=== PATIENT | male | born 1965 | race Two or more races ===

== ENCOUNTER → 2022-04-03 | Outpatient (CLI) | payer BC ==
[2022-04-03 08:04] LABS: African American GFR (CKD) >90 (>60 ml/min/1.73 sqM); Blood Urea Nitrogen 16 mg/dL (9-20); Non-African American GFR(CKD) >90 (>60 ml/min/1.73 sqM)
--- NOTE | 2022-04-03 10:33 | CT ---
EXAMINATION TYPE: CT abdomen wo/w con DATE OF EXAM: 04/03/2022 COMPARISON: NONE HISTORY: 56-year-old male N28.1, renal cyst TECHNIQUE: Contiguous axial scanning of the abdomen before and after administration of 70 ml Isovue 3 00 IV contrast. Delayed images through the kidneys and coronal/sagittal reconstructions performed. CT DLP: 1863 mGycm Automated exposure control for dose reduction was used. FINDINGS: Heart normal size without pericardial effusion. Lung bases clear without pleural effusion. No focal liver lesion or biliary ductal dilatation. Portal venous system is patent. Cholecystectomy c lips. Adrenal glands, spleen, and pancreas within normal limits. No renal calculi. Left kidney shows 3 cortical hypodensities measuring 1.3, 1.4, and 0.8 cm. These are too small for ac curate CT characterization and probably represent benign cortical cysts. Consider 12 month follow-up to reassess. On the right, there is a large lobulated cystic mass measuring 8.4 cm AP by 6.7 cm wide by 6.3 cm acid crane operator niocaudal. No enhancing soft tissue components, thickened septations, or calcifications are seen. A benign 1.8 cm cortical cyst medial midpole left kidney. No dilated small bowel, free fluid, or free air. No mesenteric or retroperitoneal lymphadenopathy. Mild stool burden. No pericolonic inflammatory change. Pelvis not imaged. Bones: Mild degenerative disc disease throughout. Facet arthropathy mid to lower lumbar spine. IMPRESSION: 1. A BOSNIAK CATEGORY 2F RIGHT RENAL CYST MEASURING 8.4 CM. PROMINENT LOBULATIONS MAY REFLECT MULTIPL E THIN INTERNAL SEPTATIONS. RECOMMEND CT OR MRI AT 6 AND 12 MONTHS FOLLOWED BY [facility] FO R 5 YEARS. 2. OTHER SMALLER CORTICAL RENAL LESIONS CAN ALSO BE REASSESSED AT THE FOLLOW-UP EXAMS. MANY OF THESE ARE TOO SMALL FOR ACCURATE CHARACTERIZATION AND PROBABLY REPRESENT ADDITIONAL CYSTS.
== END | disposition home or self-care (01) ==
LOC: RADCTMAIN 07:24
PROVIDERS: ATTEND Family Medicine
DX: N28.1 Cyst of kidney, acquired (principal)
CPT/HCPCS: 82565; 84520; 74170; 36415; Q9967

== ENCOUNTER → 2022-10-11 | Outpatient (CLI) | payer BC ==
[2022-10-11 18:28] LABS: African American GFR (CKD) >90 (>60 ml/min/1.73 sqM); Blood Urea Nitrogen 21 mg/dL (9-20); Non-African American GFR(CKD) 90 (>60 ml/min/1.73 sqM)
--- NOTE | 2022-10-11 23:46 | CT ---
EXAMINATION TYPE: CT abdomen wo/w con DATE OF EXAM: 10/11/2022 COMPARISON: 04/03/2022 INDICATION: Renal cyst DLP: 3246.2 mGycm, Automated exposure control for dose reduction was used. CONTRAST: 100 cc mL of Isovue 300. Study performed with Oral Contrast TECHNIQUE: Axial images were obtained from above the diaphragm to the pubic rami in the axial plane a t 5 mm thick sections. Reconstructed images are reviewed on the computer in the coronal plane. FINDINGS: Limited CT sections are obtained the lung bases. The lung bases are clear. CT ABDOMEN: Liver: Normal Spleen: Normal Pancreas: Normal Adrenal glands: The adrenal glands are normal. Gallbladder: Surgically absent Kidneys: No masses are evident. No hydronephrosis is present. There is a 7.0 cm cyst in the anterio r mid left kidney Delayed images were obtained through the kidneys. Small cortical renal cysts are m ore apparent on the delayed images. Aorta: Vascular calcification is within the aorta. Inferior vena cava: Normal. CT PELVIS: Loops of bowel within the abdomen and pelvis are normal. There are loops of bowel which are incom pletely distended or lack oral contrast limiting their evaluation. Appendix: Normal as visualized. Urinary bladder: Normal. Genitourinary structures: Prostate appears normal Osseous structures: No suspicious lytic or sclerotic lesions. Subchondral cyst formation may be withi n the femoral heads. IMPRESSIONS: 1. 7 cm simple appearing cyst measuring 7 Hounsfield units mid right kidney. Additional smaller alfred ical renal cysts. Be present bilaterally
== END | disposition home or self-care (01) ==
LOC: RADCTMAIN 17:31
PROVIDERS: ATTEND Urology
DX: N28.1 Cyst of kidney, acquired (principal)
CPT/HCPCS: 82565; 84520; 74170; 36415; Q9967

== ENCOUNTER 2023-10-30 10:36 | Emergency (ER) | payer BC ==
[2023-10-30 10:46] VITALS: RESP 18
--- NOTE | 2023-10-30 10:53 | ED ---
Skin/Abscess/FB HPI - General Chief complaint: Skin/Abscess/Foreign Body Stated complaint: rash on leg/pain Time Seen by Provider: 10/30/23 10:52 Source: patient, RN notes reviewed Mode of arrival: ambulatory Limitations: no limitations - History of Present Illness Initial comments: This is a 58-year-old male with no significant past medical history emergency department chief complaint of a rash to his right lower extremity. He states that he woke up the middle of the night on 10/27/23 with chills and nausea and on 10/28/23 noticed an erythematous and pruritic rash of the right lower extremity that is painful. He states he was working outside most the day on Sunday and believes he may have been exposed to an allergen or bug bite. Patient went to his primary care provider yesterday and was treated with a prednisone taper pack. Currently patient denies any shortness of breath, chest pain or pressure, palpitations. Endorses pain in the right lower extremity. - Related Data Previous Rx's Medication Instructions Recorded Cephalexin [Keflex] 500 mg PO Q6HR #40 cap 10/30/23 Ondansetron Odt [Zofran Odt] 4 mg PO Q8HR PRN #10 tab 10/30/23 Allergies Allergy/AdvReac Type Severity Reaction Status Date / Time iodine Allergy Anaphylaxis Verified 03/23/17 08:26 shellfish derived Allergy Anaphylaxis Verified 10/30/23 10:46 Review of Systems ROS Statement: Those systems with pertinent positive or pertinent negative responses have been documented in the HPI. ROS Other: All systems not noted in ROS Statement are negative. Past Medical History Past Medical History: No Reported History History of Any Multi-Drug Resistant Organisms: None Reported Past Surgical History: Cholecystectomy Additional Past Surgical History / Comment(s): VASECTOMY Past Anesthesia/Blood Transfusion Reactions: No Reported Reaction Past Psychological History: No Psychological Hx Reported Smoking Status: Former smoker Past Alcohol Use History: Occasional Past Drug Use History: None Reported - Past Family History Father Family Medical History: Cancer General Exam Limitations: no limitations General appearance: alert, in no apparent distress Head exam: Present: atraumatic, normocephalic, normal inspection Eye exam: Present: normal appearance, PERRL, EOMI. Absent: scleral icterus, conjunctival injection, periorbital swelling ENT exam: Present: normal exam, mucous membranes moist Neck exam: Present: normal inspection. Absent: tenderness, meningismus, lymphadenopathy Respiratory exam: Present: normal lung sounds bilaterally. Absent: respiratory distress, wheezes, rales, rhonchi, stridor Cardiovascular Exam: Present: regular rate, normal rhythm, normal heart sounds. Absent: systolic murmur, diastolic murmur, rubs, gallop, clicks GI/Abdominal exam: Present: soft, normal bowel sounds. Absent: distended, tenderness, guarding, rebound, rigid Extremities exam: Present: tenderness (superior left inguinal thigh, no palpated LN enlargement or signs of erythema/edema) Right Lower Leg exam: Present: tenderness, erythema Back exam: Present: normal inspection Neurological exam: Present: alert, oriented X3, CN II-XII intact Skin exam: Present: warm, rash, erythema (RLE erythema and patchy painful rash that is warm to the touch) Course Vital Signs 10/30/23 10/30/23 10:40 12:20 Temperature 98.8 F 99 F Pulse Rate 85 84 Respiratory 18 18 Rate Blood Pressure 153/72 155/84 O2 Sat by Pulse 97 98 Oximetry Medical Decision Making - Medical Decision Making Was pt. sent in by a medical professional or institution (, PA, SLIPCOVER CUTTER, urgent care, hospital, or half-way...) When possible be specific @ -No Did you speak to anyone other than the patient for history (EMS, parent, family, police, friend...)? What history was obtained from this source @ -No Did you review nursing and triage notes (agree or disagree)? Why? @ -I reviewed and agree with nursing and triage notes Were old charts reviewed (outside hosp., previous admission, EMS record, old EKG, old radiological studies, urgent care reports/EKG's, half-way records)? Report findings @ -No old charts were reviewed Differential Diagnosis (chest pain, altered mental status, abdominal pain women, abdominal pain men, vaginal bleeding, weakness, fever, dyspnea, syncope, headache, dizziness, GI bleed, back pain, seizure, CVA, palpatations, mental health, musculoskeletal)? @ -Cellulitis, rash, dermatitis, contact dermatitis, DVT, superficial thrombop hlebitis this list is not all inclusive. EKG interpreted by me (3pts min.). @ -None X-rays interpreted by me (1pt min.). @ -None done CT interpreted by me (1pt min.). @ -None done U/S interpreted by me (1pt. min.). @ -Duplex ultrasound of the right lower extremity no evidence for DVT. What testing was considered but not performed or refused? (CT, X-rays, U/S, labs)? Why? @ -None What meds were considered but not given or refused? Why? @ -None Did you discuss the management of the patient with other professionals (professionals i.e. , PA, SLIPCOVER CUTTER, lab, RT, psych nurse, social scientist, bulk plant supervisor, teacher, sailing officer, block and case maker)? Give summary @ -I spoke with ED attending Dr. Al where he recommends the patient be discharged with oral antibiotics and strict return parameters are communicated at bedside and patient verbalizes understanding. Was smoking cessation discussed for >3mins.? @ -No Was critical care preformed (if so, how long)? @ -No Were there social determinants of health that impacted care today? How? (Homelessness, low income, unemployed, alcoholism, drug addiction, transp ortation, low edu. Level, literacy, decrease access to med. care, skilled nursing, rehab)? @ -No Was there de-escalation of care discussed even if they declined (Discuss DNR or withdrawal of care, Hospice)? DNR status @ -No What co-morbidities impacted this encounter? (DM, HTN, Smoking, COPD, CAD, Cancer, CVA, ARF, Chemo, Hep., AIDS, mental health diagnosis, sleep apnea, morbid obesity)? @ -morbid obesity Was patient admitted / discharged? Hospital course, mention meds given and route, prescriptions, significant lab abnormalities, going to OR and other pertinent info. @ -58-year-old male with a rash to the right lower extremity. On examination the rash is non-blanchable, erythematous, pruritic, warm to the touch, and no signs of open skin or purulent drainage. At this time an IV was started with ba sic labs, and patient will be sent for ultrasound of the right lower extremity and patient is in agreement with this plan. CBC reveals mild leukocytosis of 15.3 with neutrophils of 14.2. CMP unremarkable, lactate nonelevated. Ultrasound unremarkable. At this time patient will be evaluated for a dose of antibiotics and will be discharged home with Keflex for treatment of cellulitis.With patient at bedside that infection may slightly worsen over the next 2 days but return to the emergency department if infection significantly worsens, elevated fevers, nausea and vomiting. Recommend the patient follows up with her primary care provider next week for reevaluation. All questions a nswered at bedside and strict return parameters discussed with the patient where he verbalizes understanding. Case discussed with Dr. Al Undiagnosed new problem with uncertain prognosis? @ -No Drug Therapy requiring intensive monitoring for toxicity (Heparin, Nitro, Insulin, Cardizem)? @ -No Were any procedures done? @ -No Diagnosis/symptom? @ -Cellulitis Acute, or Chronic, or Acute on Chronic? @ -Acute Uncomplicated (without systemic symptoms) or Complicated (systemic symptoms)? @ -Uncomplicated Side effects of treatment? @ -No Exacerbation, Progression, or Severe Exacerbation? @ -No Poses a threat to life or bodily function? How? (Chest pain, [place], HI, pneumonia, PE, COPD, DKA, ARF, appy, cholecystitis, CVA, Diverticulitis, Homicidal, Suicidal, threat to staff... and all critical care pts) @ -No - Lab Data Result diagrams: 10/30/23 11:13 10/30/23 11:13 Lab Results 10/30/23 10/30/23 10/30/23 Range/Units 11:13 11:13 11:13 WBC 15.3 H (3.8-10.6) k/uL RBC 5.09 (4.30-5.90) m/uL Hgb 15.4 (13.0-17.5) gm/dL Hct 48.1 (39.0-53.0) % MCV 94.4 (80.0-100.0) fL MCH 30.2 (25.0-35.0) pg MCHC 32.0 (31.0-37.0) g/dL RDW 12.9 (11.5-15.5) % Plt Count 266 (150-450) k/uL MPV 8.4 Neutrophils % 93 % Lymphocytes % 5 % Monocytes % 2 % Eosinophils % 0 % Basophils % 0 % Neutrophils # 14.2 H (1.3-7.7) k/uL Lymphocytes # 0.7 L (1.0-4.8) k/uL Monocytes # 0.3 (0-1.0) k/uL Eosinophils # 0.0 (0-0.7) k/uL Basophils # 0.0 (0-0.2) k/uL PT 10.3 (10.0-12.5) sec INR 0.9 (<1.2) APTT 26.4 (22.0-30.0) sec Sodium 138 (137-145) mmol/L Potassium 3.6 (3.5-5.1) mmol/L Chloride 104 (98-107) mmol/L Carbon Dioxide 27 (22-30) mmol/L Anion Gap 7 mmol/L BUN 17 (9-20) mg/dL Creatinine 0.82 (0.66-1.25) mg/dL Est GFR (CKD-EPI)AfAm >90 (>60 ml/min/1.73 sqM) Est GFR (CKD-EPI)NonAf >90 (>60 ml/min/1.73 sqM) Glucose 158 H (74-99) mg/dL Plasma Lactic Acid Baljti (0.7-2.0) mmol/L Calcium 9.2 (8.4-10.2) mg/dL Total Bilirubin 1.0 (0.2-1.3) mg/dL AST 37 (17-59) U/L ALT 30 (4-49) U/L Alkaline Phosphatase 74 (38-126) U/L Total Protein 7.6 (6.3-8.2) g/dL Albumin 4.3 (3.5-5.0) g/dL 10/30/23 Range/Units 11:13 WBC (3.8-10.6) k/uL RBC (4.30-5.90) m/uL Hgb (13.0-17.5) gm/dL Hct (39.0-53.0) % MCV (80.0-100.0) fL MCH (25.0-35.0) pg MCHC (31.0-37.0) g/dL RDW (11.5-15.5) % Plt Count (150-450) k/uL MPV Neutrophils % % Lymphocytes % % Monocytes % % Eosinophils % % Basophils % % Neutrophils # (1.3-7.7) k/uL Lymphocytes # (1.0-4.8) k/uL Monocytes # (0-1.0) k/uL Eosinophils # (0-0.7) k/uL Basophils # (0-0.2) k/uL PT (10.0-12.5) sec INR (<1.2) APTT (22.0-30.0) sec Sodium (137-145) mmol/L Potassium (3.5-5.1) mmol/L Chloride (98-107) mmol/L Carbon Dioxide (22-30) mmol/L Anion Gap mmol/L BUN (9-20) mg/dL Creatinine (0.66-1.25) mg/dL Est GFR (CKD-EPI)AfAm (>60 ml/min/1.73 sqM) Est GFR (CKD-EPI)NonAf (>60 ml/min/1.73 sqM) Glucose (74-99) mg/dL Plasma Lactic Acid Baljit 1.7 (0.7-2.0) mmol/L Calcium (8.4-10.2) mg/dL Total Bilirubin (0.2-1.3) mg/dL AST (17-59) U/L ALT (4-49) U/L Alkaline Phosphatase (38-126) U/L Total Protein (6.3-8.2) g/dL Albumin (3.5-5.0) g/dL Disposition Clinical Impression: Cellulitis Disposition: HOME SELF-CARE Condition: Good Instructions (If sedation given, give patient instructions): Cellulitis (ED) Additional Instructions: Return to the emergency department if symptoms worsen or not improve. Complete full course of antibiotics as described. Recommend follow-up with primary care provider for further evaluation. Prescriptions: Cephalexin [Keflex] 500 mg PO Q6HR #40 cap Ondansetron Odt [Zofran Odt] 4 mg PO Q8HR PRN #10 tab PRN Reason: Nausea Is patient prescribed a controlled substance at d/c from ED?: No Referrals: Daniela Mehta DO [Primary Care Provider] - 1-2 days Time of Disposition: 12:07
[2023-10-30 11:30] LABS: Basophils % (A) 0 %; Eosinophils % (A) 0 %; HCT 48.1 % (39.0-53.0); HGB 15.4 gm/dL (13.0-17.5); Lymphocytes # (A) 0.7 k/uL (1.0-4.8); Lymphocytes % (A) 5 %; MCH 30.2 pg (25.0-35.0); MCV 94.4 fL (80.0-100.0); Mean Platelet Volume 8.4; Monocytes # (A) 0.3 k/uL (0-1.0); Monocytes % (A) 2 %; Neutrophils # (A) 14.2 k/uL (1.3-7.7); Neutrophils % (A) 93 %; Platelet Count 266 k/uL (150-450); RBC 5.09 m/uL (4.30-5.90); RDW 12.9 % (11.5-15.5); WBC 15.3 k/uL (3.8-10.6)
[2023-10-30 11:39] LABS: ALT 30 U/L (4-49); AST 37 U/L (17-59); African American GFR (CKD) >90 (>60 ml/min/1.73 sqM); Albumin 4.3 g/dL (3.5-5.0); Alkaline Phosphatase 74 U/L (38-126); Anion Gap 7 mmol/L; Blood Urea Nitrogen 17 mg/dL (9-20); Calcium 9.2 mg/dL (8.4-10.2); Carbon Dioxide 27 mmol/L (22-30); Chloride 104 mmol/L (98-107); Glucose 158 mg/dL (74-99); Non-African American GFR(CKD) >90 (>60 ml/min/1.73 sqM); Potassium 3.6 mmol/L (3.5-5.1); Sodium 138 mmol/L (137-145); Total Protein 7.6 g/dL (6.3-8.2)
--- NOTE | 2023-10-30 11:45 | US ---
EXAMINATION TYPE: US venous doppler duplex LE RT DATE OF EXAM: 10/30/2023 11:36 AM COMPARISON: NONE CLINICAL INDICATION: Male, 58 years old with history of pain, swelling, rash; Right lower leg rash SIDE PERFORMED: Right TECHNIQUE: The lower extremity deep venous system is examined utilizing real time linear array sonog brennan with graded compression, doppler sonography and color-flow sonography. VESSELS IMAGED: Common Femoral Vein Deep Femoral Vein Greater Saphenous Vein * Femoral Vein Popliteal Vein Small Saphenous Vein * Proximal Calf Veins (* superficial vessels) Right Leg: Appears negative for DVT IMPRESSION: 1. No diagnostic evidence of DVT.
[2023-10-30 11:48] LABS: INR 0.9 (<1.2); Partial Thromboplastin Time 26.4 sec (22.0-30.0); Prothrombin Time 10.3 sec (10.0-12.5)
[2023-10-30] MEDS: cefTRIAXone 1,000 MG VIAL (IM USE) IM STA (12:13)
[2023-10-30] MEDS: cefTRIAXone IN SWFI 1,000 MG/10 ML SYRINGE IVP STA (12:13)
[2023-10-30 12:21] VITALS: BP 155/84; PULSE 84; TEMP 99
== END 2023-10-30 12:23 | disposition home or self-care (01) ==
LOC: EC 10:36
DX: L03.115 Cellulitis of right lower limb (principal); Z91.041 Radiographic dye allergy status; Z91.013 Allergy to seafood; Z87.891 Personal history of nicotine dependence
CPT/HCPCS: 36415; 80053; 83605; 85025; 85610; 85730; 93971; 99283; 96374; J0696

== ENCOUNTER 2023-11-01 07:11 | Emergency (ER) | payer BC ==
[2023-11-01] MEDS: KETOROLAC 15 MG/ML 1 ML VIAL IVP STA (08:17)
--- NOTE | 2023-11-01 08:21 | ED ---
Skin/Abscess/FB HPI - General Chief complaint: Skin/Abscess/Foreign Body Stated complaint: rash on leg Time Seen by Provider: 11/01/23 07:32 Source: patient, RN notes reviewed Mode of arrival: ambulatory Limitations: no limitations - History of Present Illness Initial comments: This is a 58-year-old male who presents to the emergency department for cellu litis of the right leg. Patient was evaluated here 2 days ago for a rash on the right leg and diagnosed with cellulitis. He was given a prescription for Keflex on discharge. States that since then the rash and swelling are getting worse. This is also getting more painful. He is also waking up at night with chills and sweats. He has not measured any fevers. MD complaint: rash - Related Data Home Medications Medication Instructions Recorded Confirmed Acetaminophen Tab [Tylenol Tab] 1,000 mg PO Q6HR PRN 11/01/23 11/01/23 Previous Rx's Medication Instructions Recorded Cephalexin [Keflex] 500 mg PO Q6HR #40 cap 10/30/23 Ondansetron Odt [Zofran Odt] 4 mg PO Q8HR PRN #10 tab 10/30/23 Naproxen Sodium 550 mg PO BID PRN #30 tablet 11/01/23 SILVER sulfADIAZINE CREAM 1 applic TOPICAL BID #85 gram 11/01/23 [Silvadene Cream] Sulfamethox-Tmp 800-160Mg [Bactrim 1 tab PO Q12HR 7 Days #14 tab 11/01/23 DS 800-160 mg] Allergies Allergy/AdvReac Type Severity Reaction Status Date / Time iodine Allergy Anaphylaxis Verified 11/01/23 11:52 shellfish derived Allergy Anaphylaxis Verified 11/01/23 11:52 Review of Systems ROS Statement: Those systems with pertinent positive or pertinent negative responses have been documented in the HPI. ROS Other: All systems not noted in ROS Statement are negative. Past Medical History Past Medical History: No Reported History History of Any Multi-Drug Resistant Organisms: None Reported Past Surgical History: Cholecystectomy Additional Past Surgical History / Comment(s): VASECTOMY Past Anesthesia/Blood Transfusion Reactions: No Reported Reaction Past Psychological History: No Psychological Hx Reported Smoking Status: Former smoker Past Alcohol Use History: Occasional Past Drug Use History: None Reported - Past Family History Father Family Medical History: Cancer General Exam Limitations: no limitations General appearance: alert, in no apparent distress Head exam: Present: atraumatic, normocephalic, normal inspection Respiratory exam: Present: normal lung sounds bilaterally. Absent: respiratory distress, wheezes, rales, rhonchi, stridor Cardiovascular Exam: Present: regular rate, normal rhythm, normal heart sounds. Absent: systolic murmur, diastolic murmur, rubs, gallop, clicks Extremities exam: Present: other (Swelling, tenderness, and erythema to the right lower extremity inferior to the knee. 2+ DP and PT pulses.) Neurological exam: Present: alert, oriented X3, CN II-XII intact Psychiatric exam: Present: normal affect, normal mood Course Vital Signs 11/01/23 11/01/23 07:26 13:19 Temperature 98.2 F 99.6 F Pulse Rate 75 89 Respiratory 18 17 Rate Blood Pressure 127/74 129/78 O2 Sat by Pulse 97 97 Oximetry Medical Decision Making - Medical Decision Making This is a 58 year old male who presents to the emergency department for a painful rash to the right leg. Was pt. sent in by a medical professional or institution? @ -No Did you speak to anyone other than the patient for history? @ -No Did you review nursing and triage notes? @ -Yes, and I agree, it is accurate with regards to the patient's symptoms. Were old charts reviewed? @ -Duplex US of the right lower extremity from 10/30/23 which was negative for a DVT. Differential Diagnosis? @ -Differential Leg Pain: Leg fracture, leg sprain, DVT, PVD, arterial insufficiency, iliac artery aneury sm, cellulitis, compartment syndrome, tendinopathy, nerve entrapment, piriformis syndrome, osteoarthritis, rhabdomyolysis, myositis, cramping from an electrolyte imbalance, this is not meant to be an all inclusive list. EKG interpreted by me (3pts min.)? @ -Not obtained X-rays interpreted by me (1pt min.)? @ -X-ray of the right tib-fib obtained. My interpretation identifies soft tissue swelling. CT interpreted by me (1pt min.)? @ -Not obtained U/S interpreted by me (1pt. min.)? @ -Not obtained What testing was considered but not performed? (CT, X-rays, U/S, labs)? Why? @ -None What meds were considered but not given? Why? @ -None Did you discuss the management of the patient with other professionals? @ -No Did you reconcile home meds? @ -No Was smoking cessation discussed for >3mins.? @ -No Was critical care preformed (if so, how long)? @ -No Were there social determinants of health that impacted care today? How? (Homelessness, low income, unemployed, alcoholism, drug addiction, transportation, low edu. Level, literacy, decrease access to med. care, group home, rehab)? @ -No Was there de-escalation of care discussed even if they declined? (Discuss DNR or withdrawal of care, Hospice)? @ -No What co-morbidities impacted this encounter? (DM, HTN, Smoking, COPD, CAD, Cancer, CVA, Hep., AIDS, mental health diagnosis, sleep apnea, morbid obesity)? @ -None Was patient admitted / discharged? @ -Discharged. Lab work demonstrates leukocytosis with a white blood cell count of 13.4. This has improved compared with 2 days ago when it was 15.3. X-ray of the right tib-fib obtained revealing soft tissue swelling without other acute process. Discussed with the patient that his blood work looks improved in general, however given that he feels like symptoms may be worsening, I did offer admission for failed outpatient management versus the addition of a second antibiotic and close follow-up. Patient requests second antibiotic and close follow-up. He was given a dose of IV cefepime and vancomycin in the emergency department. Bactrim prescribed to be taken in conjunction with the Keflex he is already taking. He was also given a prescription for naproxen for pain control. Advised close follow-up with his primary care provider. Undiagnosed new problem with uncertain prognosis? @ -None Drug Therapy requiring intensive monitoring for toxicity (Heparin, Nitro, Insulin, Cardizem)? @ -None Were any procedures done? @ -None Diagnosis/symptom? @ -Cellulitis Acute, or Chronic, or Acute on Chronic? @ -Acute Uncomplicated (without systemic symptoms) or Complicated (systemic symptoms)? @ -Uncomplicated Side effects of treatment? @ -None Exacerbation, Progression, or Severe Exacerbation] @ -Not applicable Poses a threat to life or bodily function? @ -No Return precautions reviewed in depth, the patient is instructed to return to the emergency department with any new, worsening, or concerning symptoms. Patient verbalized understanding. This case was discussed in detail with the attending ED physician, Dr. Mehta. Presentation, findings, and treatment plan discussed in detail as well. - Lab Data Result diagrams: 11/01/23 08:12 11/01/23 08:39 Lab Results 11/01/23 11/01/23 11/01/23 Range/Units 08:12 08:12 08:39 WBC 13.4 H (3.8-10.6) k/uL RBC 4.57 (4.30-5.90) m/uL Hgb 14.1 (13.0-17.5) gm/dL Hct 43.8 (39.0-53.0) % MCV 95.9 (80.0-100.0) fL MCH 31.0 (25.0-35.0) pg MCHC 32.3 (31.0-37.0) g/dL RDW 13.0 (11.5-15.5) % Plt Count 299 (150-450) k/uL MPV 8.1 Neutrophils % 80 % Lymphocytes % 12 % Monocytes % 5 % Eosinophils % 1 % Basophils % 0 % Neutrophils # 10.7 H (1.3-7.7) k/uL Lymphocytes # 1.6 (1.0-4.8) k/uL Monocytes # 0.7 (0-1.0) k/uL Eosinophils # 0.1 (0-0.7) k/uL Basophils # 0.0 (0-0.2) k/uL Sodium 138 (137-145) mmol/L Potassium 3.7 (3.5-5.1) mmol/L Chloride 105 (98-107) mmol/L Carbon Dioxide 28 (22-30) mmol/L Anion Gap 5 mmol/L BUN 20 (9-20) mg/dL Creatinine 0.83 (0.66-1.25) mg/dL Est GFR (CKD-EPI)AfAm >90 (>60 ml/min/1.73 sqM) Est GFR (CKD-EPI)NonAf >90 (>60 ml/min/1.73 sqM) Glucose 111 H (74-99) mg/dL Plasma Lactic Acid Baljit 1.3 (0.7-2.0) mmol/L Calcium 8.9 (8.4-10.2) mg/dL Total Bilirubin 0.7 (0.2-1.3) mg/dL AST 58 (17-59) U/L ALT 62 H (4-49) U/L Alkaline Phosphatase 75 (38-126) U/L C-Reactive Protein 14.3 H (<1.0) mg/dL Total Protein 6.4 (6.3-8.2) g/dL Albumin 3.6 (3.5-5.0) g/dL - Radiology Data Radiology results: report reviewed, image reviewed Disposition Clinical Impression: Cellulitis of right leg Disposition: HOME SELF-CARE Instructions (If sedation given, give patient instructions): Cellulitis (ED) Additional Instructions: Return to the emergency department with any new, worsening, or concerning symptoms. Take the new antibiotic as prescribed for 7 days in conjunction with the current antibiotic. Take the Naproxen twice daily as needed with Tylenol for pain relief. Apply the silver sulfadiazine cream twice daily. You can also apply cool compresses. Follow up with your primary care provider in 1-2 days. Prescriptions: Sulfamethox-Tmp 800-160Mg [Bactrim DS 800-160 mg] 1 tab PO Q12HR 7 Days #14 tab Naproxen Sodium 550 mg PO BID PRN #30 tablet PRN Reason: Pain SILVER sulfADIAZINE CREAM [Silvadene Cream] 1 applic TOPICAL BID #85 gram Is patient prescribed a controlled substance at d/c from ED?: No Referrals: Daniela Mehta DO [Primary Care Provider] - 1-2 days Time of Disposition: 12:18
[2023-11-01 08:32] LABS: Basophils % (A) 0 %; Eosinophils # (A) 0.1 k/uL (0-0.7); Eosinophils % (A) 1 %; HCT 43.8 % (39.0-53.0); HGB 14.1 gm/dL (13.0-17.5); Lymphocytes # (A) 1.6 k/uL (1.0-4.8); Lymphocytes % (A) 12 %; MCHC 32.3 g/dL (31.0-37.0); MCV 95.9 fL (80.0-100.0); Mean Platelet Volume 8.1; Monocytes # (A) 0.7 k/uL (0-1.0); Monocytes % (A) 5 %; Neutrophils # (A) 10.7 k/uL (1.3-7.7); Neutrophils % (A) 80 %; Platelet Count 299 k/uL (150-450); RBC 4.57 m/uL (4.30-5.90); WBC 13.4 k/uL (3.8-10.6)
--- NOTE | 2023-11-01 08:34 | XR ---
EXAMINATION TYPE: XR tibia fibula RT DATE OF EXAM: 11/01/2023 COMPARISON: NONE HISTORY: Pain,swelling TECHNIQUE: Two views are submitted. FINDINGS: The osseous structures are intact. Mild narrowing joint space. No calcaneal spur noted. Marginal spur ring of the tibial talar joint. No destructive changes. There is soft tissue edema. IMPRESSION: 1. Soft tissue edema and arthropathy with no diagnostic evidence of osteomyelitis.
[2023-11-01 09:31] LABS: ALT 62 U/L (4-49); AST 58 U/L (17-59); African American GFR (CKD) >90 (>60 ml/min/1.73 sqM); Albumin 3.6 g/dL (3.5-5.0); Alkaline Phosphatase 75 U/L (38-126); Anion Gap 5 mmol/L; Blood Urea Nitrogen 20 mg/dL (9-20); Calcium 8.9 mg/dL (8.4-10.2); Carbon Dioxide 28 mmol/L (22-30); Chloride 105 mmol/L (98-107); Glucose 111 mg/dL (74-99); Non-African American GFR(CKD) >90 (>60 ml/min/1.73 sqM); Potassium 3.7 mmol/L (3.5-5.1); Sodium 138 mmol/L (137-145); Total Bilirubin 0.7 mg/dL (0.2-1.3); Total Protein 6.4 g/dL (6.3-8.2)
[2023-11-01 10:14] LABS: C Reactive Protein 14.3 mg/dL (<1.0)
[2023-11-01] MEDS ORDERED: VANCOMYCIN IV PER PHARMACY 1 EACH MISC MISCELLANE PRN (10:26)
[2023-11-01] MEDS ORDERED: VANCOMYCIN 2,000 MG in SODIUM CHLORIDE 0.9% 500 ML 500 ML IVPB STA (10:32)
[2023-11-01] MEDS: CEFEPIME 2 GM in SODIUM CHLORIDE 0.9% 100 ML IVPB STA (11:25)
[2023-11-01] MEDS: VANCOMYCIN 2,000 MG in SODIUM CHLORIDE 0.9% 500 ML 500 ML IVPB STA (12:07)
[2023-11-01] MEDS: ACETAMINOPHEN TAB 500 MG TAB PO STA (13:21)
[2023-11-01] MEDS: ACET/COD 300 MG/30 MG STARTER PACK 6 TAB BTL PO STA (15:15)
[2023-11-01 15:27] VITALS: BP 132/79; PULSE 88; RESP 16; TEMP 98.8
[2023-11-01 16:35] LABS: Erythrocyte Sedimentation Rate 73 mm/Hr (0-20)
[2023-11-01] MEDS ORDERED: VANCOMYCIN 2,000 MG in SODIUM CHLORIDE 0.9% 500 ML 500 ML IVPB SCH (22:00)
== END 2023-11-01 15:25 | disposition home or self-care (01) ==
LOC: EC 07:11
DX: L03.115 Cellulitis of right lower limb (principal); Z91.013 Allergy to seafood; Z88.8 Allergy status to other drugs, medicaments and biological substances; Z87.891 Personal history of nicotine dependence; Z91.041 Radiographic dye allergy status; Z90.49 Acquired absence of other specified parts of digestive tract
CPT/HCPCS: 36415; 80053; 85652; 83605; 85025; 86140; 73590; 99284; 96365; 96367; 96366; 96375; J3370; J0692; J1885

== ENCOUNTER → 2024-04-09 | Outpatient (CLI) | payer BC ==
--- NOTE | 2024-04-09 17:49 | CT ---
EXAMINATION TYPE: CT abdomen pelvis wo/w con DATE OF EXAM: 04/09/2024 5:13 PM COMPARISON: CT abdomen pelvis most recent from 10/11/2022 CLINICAL INDICATION: Male, 58 years old with history of N28.1 RENAL CYST; renal cyst TECHNIQUE: Axial CT abdomen pelvis wo/w con;Sagittal and coronal reformats were created on a [employer] workstation. Contrast used:100 mL of Isovue 370 without and with IV Contrast, (none if empty) Oral contrast used: with Oral Contrast (none if empty) CT DLP: 2635.3 mGycm, Automated exposure control for dose reduction was used. FINDINGS: LOWER CHEST: Unremarkable ABDOMEN LIVER: Unremarkable GALLBLADDER AND BILE DUCTS: Gallbladder surgically absent.. PANCREAS: Unremarkable. SPLEEN: Unremarkable. ADRENAL GLANDS: Unremarkable. KIDNEYS AND URETERS: Bilateral renal cysts. No abnormal postcontrast enhancement. The largest cyst me asuring up to 7.9 x 66 mm on the right and on the left measuring 13 mm.. No evidence of hydronephrosi s or renal calculus. The ureters are unremarkable. STOMACH AND BOWEL: No evidence of bowel obstruction. PERITONEUM/RETROPERITONEUM: No evidence of pneumoperitoneum or free fluid. VASCULATURE: No evidence of aortic aneurysm. MUSCULOSKELETAL: No acute osseous abnormalities LYMPH NODES: No gross evidence for lymphadenopathy. SOFT TISSUE/ABDOMINAL WALL: Unremarkable IMPRESSION: 1. No evidence for acute abdominal process. 2. Bilateral renal Bosniak type I and type II renal cysts. 3. No solid renal neoplasm identified. [facility], , 04/09/2024 5:46 PM
== END | disposition home or self-care (01) ==
LOC: RADCTMAIN 15:39
PROVIDERS: ATTEND Urology
DX: N28.1 Cyst of kidney, acquired (principal)
CPT/HCPCS: 74178; Q9967